=== PATIENT | male | born 1960 | race Caucasian/White ===

== ENCOUNTER 2021-05-03 16:25 | Inpatient (IN) ==
[2021-05-03] MEDS ORDERED: Ondansetron 4 mg VIAL 2 MG/ML 2 ml VIAL IV ONE (17:40)
[2021-05-03] MEDS ORDERED: Lactated Ringers 1000 ml BAG 1,000 ML IV ONE ×2 (17:40→19:48)
[2021-05-03 18:39] LABS: ABS Lymphocytes 0.6 10^3/ul (1.0-4.8); ABS Monocytes 0.5 10^3/ul (0-0.8); ABS Neutrophils 5.5 10^3/ul (1.5-7.7); Hematocrit 44 % (42-52); Lymphocyte % 9.3 %; Mean Corpuscular HGB Conc 34 g/dL (31-36); Mean Corpuscular Hemoglobin 31 pg (27-31); Mean Corpuscular Volume 91 fL (80-94); Mean Platelet Volume 9.5 fL (7.4-10.4); Nucleated Red Blood Cells % 0.1; Platelet Count 145 10^3/uL (150-450); Red Blood Count 4.83 10^6 /uL (4.18-5.48); Red Cell Distribution Width 13 % (10-15); White Blood Count 6.7 10^3/uL (3.5-10.8)
[2021-05-03 19:24] LABS: Albumin 3.9 g/dL (3.2-5.2); Albumin/Globulin Ratio 1.3 (1-3); Calcium 8.9 mg/dL (8.6-10.3); Globulin 2.9 g/dL (2-4); Potassium 4.2 mmol/L (3.5-5.0); Total Bilirubin 0.5 mg/dL (0.2-1.0); Total Protein 6.8 g/dL (6.4-8.9)
[2021-05-03] MEDS ORDERED: Famotidine IV 10 MG/ML 2 ml VIAL (20 mg) IV SLOW PU ONE (19:48)
[2021-05-03] MEDS ORDERED: Al Hydrox/Mg Hydrox/Simet LIQ 30 ML UDC PO ONE (19:48)
[2021-05-03 22:14] LABS: Calcium 7.9 mg/dL (8.6-10.3); Potassium 4.3 mmol/L (3.5-5.0)
[2021-05-03] MEDS ORDERED: Metoclopramide 5 MG/ML VIAL (10 mg) IV SLOW PU ONE (22:37)
[2021-05-04] MEDS ORDERED: Al Hydrox/Mg Hydrox/Simet LIQ 30 ML UDC PO ONE (03:28)
[2021-05-04] MEDS ORDERED: Al Hydrox/Mg Hydrox/Simet LIQ 30 ML UDC PO PRN (05:02)
[2021-05-04] MEDS ORDERED: Dextrose 50% Syringe 50 ml 25 GM/50 ML SYRINGE IV PUSH PRN (05:10)
[2021-05-04] MEDS ORDERED: NS 0.9% 1000 ml BAG 1,000 ML IV SCH (05:15)
[2021-05-04 06:08] LABS: PCO2 Arterial 30 mmHg (35-45); PO2 Arterial 75 mmHg (80-100)
[2021-05-04] MEDS: Ondansetron 4 mg VIAL 2 MG/ML 2 ml VIAL IV PRN ×3 (06:26→23:40)
[2021-05-04 07:13] LABS: C Reactive Protein 64.54 mg/L (<8.01); Calcium 8.3 mg/dL (8.6-10.3)
[2021-05-04 08:01] LABS: Potassium 4.5 mmol/L (3.5-5.0)
[2021-05-04] MEDS: methylPREDNISolone SOD 40 mg/ml 1 ml VIAL IV SCH (08:18)
[2021-05-04] MEDS: Enoxaparin 40 MG/0.4 ML SYR SUBCUT SCH (08:18)
[2021-05-04] MEDS: Sucralfate 1 gm SUSP 1 GM/10 ML UDC PO SCH ×4 (08:19→21:00)
[2021-05-04] MEDS: Pantoprazole VIAL 40 MG VIAL IV SCH (08:42)
[2021-05-04 12:25] LABS: Urine Appearance Clear; Urine Bilirubin Negative (Negative); Urine Blood Negative (Negative); Urine Color Yellow; Urine Glucose 3+(>=500 mg/dL) (Negative); Urine Ketones 2+ (Negative); Urine Nitrite Negative (Negative); Urine Protein 1+(30 mg/dL) (Negative); Urine Specific Gravity 1.025 (1.002-1.030); Urine Urobilinogen Negative (Negative)
[2021-05-04 12:34] LABS: Urine Bacteria Absent (Absent); Urine Red Blood Cell Trace(0-2/hpf) (Absent); Urine White Blood Cell Trace(0-5/hpf) (Absent)
[2021-05-04] MEDS: Lactated Ringers 1000 ml BAG 1,000 ML IV SCH (14:25)
[2021-05-04 16:12] LABS: ABS Lymphocytes 0.6 10^3/ul (1.0-4.8); ABS Monocytes 0.3 10^3/ul (0-0.8); ABS Neutrophils 3.8 10^3/ul (1.5-7.7); Hematocrit 40 % (42-52); Hemoglobin 13.7 g/dL (14.0-18.0); Lymphocyte % 11.9 %; Mean Corpuscular HGB Conc 35 g/dL (31-36); Mean Corpuscular Hemoglobin 31 pg (27-31); Mean Corpuscular Volume 90 fL (80-94); Mean Platelet Volume 9.6 fL (7.4-10.4); Nucleated Red Blood Cells % 0.1; Platelet Count 143 10^3/uL (150-450); Red Blood Count 4.43 10^6 /uL (4.18-5.48); Red Cell Distribution Width 13 % (10-15); White Blood Count 4.7 10^3/uL (3.5-10.8)
[2021-05-04] MEDS ORDERED: Metoclopramide 5 MG/ML VIAL (10 mg) IV PRN (18:02)
[2021-05-04 18:11] LABS: Rapid COVID-19 Molecular Detected (Undetected)
[2021-05-04 20:40] LABS: Calcium 8.2 mg/dL (8.6-10.3); Potassium 4.3 mmol/L (3.5-5.0)
[2021-05-04] MEDS: Insulin GLARGINE 100 un/ml 10 ml VIAL SUBCUT SCH (20:56)
[2021-05-05] MEDS: Al Hydrox/Mg Hydrox/Simet LIQ 30 ML UDC PO ONE ×2 (01:58→02:47)
[2021-05-05] MEDS: Lactated Ringers 1000 ml BAG 1,000 ML IV SCH ×2 (03:25→21:27)
[2021-05-05 04:39] LABS: ABS Lymphocytes 0.7 10^3/ul (1.0-4.8); ABS Monocytes 0.4 10^3/ul (0-0.8); ABS Neutrophils 6.6 10^3/ul (1.5-7.7); Hematocrit 41 % (42-52); Hemoglobin 13.8 g/dL (14.0-18.0); Lymphocyte % 8.6 %; Mean Corpuscular HGB Conc 34 g/dL (31-36); Mean Corpuscular Hemoglobin 31 pg (27-31); Mean Corpuscular Volume 91 fL (80-94); Mean Platelet Volume 9.2 fL (7.4-10.4); Platelet Count 152 10^3/uL (150-450); Red Blood Count 4.45 10^6 /uL (4.18-5.48); Red Cell Distribution Width 13 % (10-15); White Blood Count 7.7 10^3/uL (3.5-10.8)
[2021-05-05 04:52] LABS: C Reactive Protein 64.8 mg/L (<8.01); Calcium 8.4 mg/dL (8.6-10.3); Potassium 3.9 mmol/L (3.5-5.0)
[2021-05-05] MEDS: methylPREDNISolone SOD 40 mg/ml 1 ml VIAL IV SCH (08:11)
[2021-05-05] MEDS: Ondansetron 4 mg VIAL 2 MG/ML 2 ml VIAL IV PRN ×2 (08:11→18:24)
[2021-05-05] MEDS: Pantoprazole VIAL 40 MG VIAL IV SCH (08:11)
[2021-05-05] MEDS: Sucralfate 1 gm SUSP 1 GM/10 ML UDC PO SCH ×5 (08:12→22:04)
[2021-05-05] MEDS: Enoxaparin 40 MG/0.4 ML SYR SUBCUT SCH (08:12)
[2021-05-05] MEDS ORDERED: Potassium Chloride LIQUID 20 MEQ/15 ML LIQUID PO ONE (08:13)
[2021-05-05 09:01] LABS: Urine Appearance Clear; Urine Bilirubin Negative (Negative); Urine Blood Negative (Negative); Urine Color Yellow; Urine Glucose 3+(>=500 mg/dL) (Negative); Urine Ketones 2+ (Negative); Urine Nitrite Negative (Negative); Urine Protein 2+(100 mg/dL) (Negative); Urine Specific Gravity 1.029 (1.002-1.030); Urine Urobilinogen Negative (Negative)
[2021-05-05 09:05] LABS: Urine Bacteria Absent (Absent); Urine Red Blood Cell Absent (Absent); Urine White Blood Cell Trace(0-5/hpf) (Absent); Urine Yeast Present (Absent)
[2021-05-05] MEDS: Metoclopramide 5 MG/ML VIAL (10 mg) IV SCH ×3 (11:38→22:05)
[2021-05-05] MEDS: Insulin GLARGINE 100 un/ml 10 ml VIAL SUBCUT SCH (21:31)
[2021-05-06] MEDS: Metoclopramide 5 MG/ML VIAL (10 mg) IV SCH ×4 (04:09→21:15)
[2021-05-06 05:56] LABS: ABS Lymphocytes 0.6 10^3/ul (1.0-4.8); ABS Monocytes 0.4 10^3/ul (0-0.8); Eosinophil % 0.1 %; Hematocrit 37 % (42-52); Hemoglobin 12.6 g/dL (14.0-18.0); Lymphocyte % 7.9 %; Mean Corpuscular HGB Conc 34 g/dL (31-36); Mean Corpuscular Hemoglobin 31 pg (27-31); Mean Corpuscular Volume 91 fL (80-94); Platelet Count 164 10^3/uL (150-450); Red Blood Count 4.07 10^6 /uL (4.18-5.48); Red Cell Distribution Width 13 % (10-15); White Blood Count 8.1 10^3/uL (3.5-10.8)
[2021-05-06 06:11] LABS: C Reactive Protein 68.97 mg/L (<8.01); Calcium 8.3 mg/dL (8.6-10.3); Magnesium 1.9 mg/dL (1.9-2.7); Potassium 3.5 mmol/L (3.5-5.0)
[2021-05-06] MEDS: Lactated Ringers 1000 ml BAG 1,000 ML IV SCH (06:23)
[2021-05-06] MEDS: methylPREDNISolone SOD 40 mg/ml 1 ml VIAL IV SCH (08:42)
[2021-05-06] MEDS: Pantoprazole VIAL 40 MG VIAL IV SCH ×2 (08:42→21:15)
[2021-05-06] MEDS: Enoxaparin 40 MG/0.4 ML SYR SUBCUT SCH (08:43)
[2021-05-06] MEDS: Sucralfate 1 gm SUSP 1 GM/10 ML UDC PO SCH ×4 (08:44→21:14)
[2021-05-06] MEDS: Insulin GLARGINE 100 un/ml 10 ml VIAL SUBCUT SCH (21:39)
[2021-05-07] MEDS: Metoclopramide 5 MG/ML VIAL (10 mg) IV SCH ×4 (05:05→21:03)
[2021-05-07] MEDS: Pantoprazole VIAL 40 MG VIAL IV SCH ×2 (08:31→21:03)
[2021-05-07] MEDS: methylPREDNISolone SOD 40 mg/ml 1 ml VIAL IV SCH (08:31)
[2021-05-07] MEDS: Sucralfate 1 gm SUSP 1 GM/10 ML UDC PO SCH ×4 (08:32→21:04)
[2021-05-07] MEDS: Enoxaparin 40 MG/0.4 ML SYR SUBCUT SCH (08:32)
[2021-05-07 09:48] LABS: ABS Monocytes 0.5 10^3/ul (0-0.8); ABS Neutrophils 4.6 10^3/ul (1.5-7.7); Eosinophil % 0.7 %; Hematocrit 39 % (42-52); Hemoglobin 13.5 g/dL (14.0-18.0); Mean Corpuscular HGB Conc 34 g/dL (31-36); Mean Corpuscular Hemoglobin 31 pg (27-31); Mean Corpuscular Volume 90 fL (80-94); Mean Platelet Volume 8.7 fL (7.4-10.4); Platelet Count 236 10^3/uL (150-450); Red Blood Count 4.33 10^6 /uL (4.18-5.48); Red Cell Distribution Width 13 % (10-15); White Blood Count 6.2 10^3/uL (3.5-10.8)
[2021-05-07 10:09] LABS: ALT 13 U/L (7-52); AST 23 U/L (13-39); Albumin/Globulin Ratio 1.1 (1-3); Alkaline Phosphatase 65 U/L (35-149); Anion Gap 10 mmol/L (2-11); Blood Urea Nitrogen 20 mg/dL (6-24); CO2 Carbon Dioxide 27 mmol/L (22-32); Calcium 8.3 mg/dL (8.6-10.3); Chloride 100 mmol/L (101-111); Globulin 2.7 g/dL (2-4); Glucose 171 mg/dL (70-100); Magnesium 1.8 mg/dL (1.9-2.7); Potassium 3.1 mmol/L (3.5-5.0); Sodium 137 mmol/L (135-145); Total Protein 5.7 g/dL (6.4-8.9)
[2021-05-07] MEDS ORDERED: Lactated Ringers 1000 ml BAG 1,000 ML IV SCH (11:00)
[2021-05-07] MEDS ORDERED: Potassium Chloride IV 40 MEQ in Lactated Ringers 1000 ml BAG 1,000 ML IVPB SCH (12:00)
[2021-05-07] MEDS: KCL 10 MEQ/50 ML IVPREMIX 10 MEQ/50 ML BAG IV SCH ×4 (12:06→21:04)
[2021-05-07 12:11] LABS: Vitamin B12 > 1450 pg/mL (180-914)
[2021-05-07] MEDS ORDERED: KCL 10 MEQ/50 ML IVPREMIX 10 MEQ/50 ML BAG IV SCH (21:00)
[2021-05-07] MEDS: Insulin GLARGINE 100 un/ml 10 ml VIAL SUBCUT SCH (22:06)
[2021-05-08] MEDS: Metoclopramide 5 MG/ML VIAL (10 mg) IV SCH ×3 (05:20→16:29)
[2021-05-08] MEDS ORDERED: Magnesium Sulfate 2 gm BAG 2 GM/50 ML BAG IVPB ONE (07:12)
[2021-05-08] MEDS ORDERED: KCL 20 MEQ/100 ML IVPREMIX 20 MEQ/100 ML BAG IV SCH (08:00)
[2021-05-08 08:06] LABS: Hematocrit 38 % (42-52); Hemoglobin 12.9 g/dL (14.0-18.0); Mean Corpuscular HGB Conc 34 g/dL (31-36); Mean Corpuscular Hemoglobin 31 pg (27-31); Mean Corpuscular Volume 91 fL (80-94); Mean Platelet Volume 8.7 fL (7.4-10.4); Platelet Count 277 10^3/uL (150-450); Red Blood Count 4.13 10^6 /uL (4.18-5.48); Red Cell Distribution Width 13 % (10-15); White Blood Count 6.3 10^3/uL (3.5-10.8)
[2021-05-08 08:21] LABS: Calcium 8.4 mg/dL (8.6-10.3); Magnesium 1.7 mg/dL (1.9-2.7); Potassium 3.5 mmol/L (3.5-5.0)
[2021-05-08] MEDS: Enoxaparin 40 MG/0.4 ML SYR SUBCUT SCH ×2 (08:21→08:24)
[2021-05-08] MEDS: Sucralfate 1 gm SUSP 1 GM/10 ML UDC PO SCH ×3 (08:21→16:19)
[2021-05-08] MEDS: methylPREDNISolone SOD 40 mg/ml 1 ml VIAL IV SCH (08:22)
[2021-05-08] MEDS: Pantoprazole VIAL 40 MG VIAL IV SCH (08:24)
[2021-05-08 10:16] LABS: RBC Morphology Normal (Normal)
[2021-05-08 10:17] LABS: ABS Eosinophils 0.1 10^3/ul (0-0.6); ABS Lymphocytes 1.6 10^3/ul (1.0-4.8); ABS Monocytes 0.7 10^3/ul (0-0.8); ABS Neutrophils 3.9 10^3/ul (1.5-7.7); Lymphocyte % 25.8 %
[2021-05-08 11:55] VITALS: BP 148/76
== END 2021-05-08 18:29 | disposition home or self-care (01) | DRG 137 ==
LOC: ED 16:25 → EDHOLD 16:25 → SUATTDRO 05-04 08:17 → MED 05-04 13:32 → SUATTDRO 05-05 16:00
PROVIDERS: ADMIT Internal Medicine; ATTEND Internal Medicine